=== PATIENT | female | born 2000 | race Two or more races ===

== ENCOUNTER 2024-05-03 21:34 | Observation (INO) | payer MEDICAID, SELFPAY ==
[2024-05-03 21:35] VITALS: BMI 19.2
[2024-05-03 22:03] VITALS: BP 103/86; PULSE 71; RESP 16; TEMP 36.9; O2SAT 99
--- NOTE | 2024-05-03 22:26 | XR_ITS ---
Examination: Three-way abdomen series including AP chest Technique: AP supine chest AP upright AP supine abdomen 3 views Exam date and time: May 03, 2024 11:53 PM Indications: Abdominal pain and bloating 3 days Findings: Normal heart size No pneumonia or pulmonary edema Very large amounts of stool in the rectum and rectosigmoid Moderate colonic ileus Prominent lumbar levoscoliosis Impression: Massive amounts of stool in the rectosigmoid and rectum
--- NOTE | 2024-05-03 22:27 | PD.EDRME ---
Rapid Medical Screening Exam RME Arrival date/time: 05/03/24 21:34 24-year-old nonverbal female brought in by caregiver who reports changes in baseline mental status shivering and having a fever since this morning Chief Complaint: Fever Time Seen by Provider: 05/03/24 22:20 Vital signs: Vital Signs Temperature 98.5 F 05/03/24 22:03 Pulse Rate 71 05/03/24 22:03 Respiratory Rate 16 05/03/24 22:03 Blood Pressure 103/86 H 05/03/24 22:03 Pulse Oximetry (%) 99 05/03/24 22:03 Oxygen Delivery Method Room Air 05/03/24 22:03
[2024-05-03 22:51] LABS: Basophils # (Auto) 0.1 Thou/mm3 (0.0-0.2); Basophils % (Auto) 1 % (0-2.5); Eosinophils % (Auto) 0 % (0-10); Hematocrit 40.9 % (36.0-46.0); Hemoglobin 13.9 g/dL (12.0-16.0); Immature Granulocytes % (Auto) 0 % (0-0); Immature Granulocytes Auto 0.01 Thou/mm3 (0.00-0.00); Lymphocytes # (Auto) 2.4 Thou/mm3 (1.0-4.8); Lymphocytes % (Auto) 36 % (10-50); Mean Corpuscular Hemoglobin 31.3 pg (25.0-35.0); Mean Corpuscular Volume 92 fL (80-100); Monocytes # (Auto) 0.5 Thou/mm3 (0.0-0.8); Monocytes % (Auto) 7 % (0-12); Neutrophils # (Auto) 3.8 Thou/mm3 (1.8-7.7); Neutrophils % (Auto) 56 % (37-80); Nucleated Red Blood Cell % 0 /100 WBC (0); Platelet Count 198 Thou/mm3 (140-440); RDW Standard Deviation 43.2 fL (36.4-46.3); Red Blood Count 4.44 Miln/mm3 (4.00-5.20); White Blood Count 6.8 Thou/mm3 (3.6-11.0)
[2024-05-03 23:14] LABS: Alanine Aminotransferase 13 U/L (10-49); Albumin, Serum 4.7 gm/dL (3.5-5.0); Albumin/Globulin Ratio 1.6 (1.2-2.2); Alkaline Phosphatase 74 U/L (46-116); Anion Gap 8 (7-16); Aspartate Amino Transferase 26 U/L (0-34); BUN/Creatinine Ratio 30 Ratio (12-20); Bilirubin,Total 0.5 mg/dL (0.3-1.2); Blood Urea Nitrogen 18 mg/dL (9-23); Calcium 10.1 mg/dL (8.3-10.6); Calcium (Corrected) 10.1 mg/dL (8.5-10.1); Carbon Dioxide 23.7 mMol/L (20.0-31.0); Chloride 105 mMol/L (98-107); Creatinine (Component) 0.6 mg/dL (0.6-1.3); Estimated Creatinine Clearance 106.8 mL/min (>60); Globulin 2.9 gm/dL (2.3-3.5); Glucose 86 mg/dL (74-106); Osmolality,Calculated 274 (275-295); Potassium 4.2 mMol/L (3.4-5.1); Sodium 137 mMol/L (136-145); Total Protein 7.6 gm/dL (5.7-8.2); eGFR > 60 See Note
[2024-05-03 23:15] LABS: HCG,Qualitative Serum Negative
[2024-05-03 23:16] LABS: Strep A Rapid Negative (Negative)
[2024-05-04] VITALS (7 sets, daily range): BP systolic 114–140; BP diastolic 65–82; PULSE 60–99; RESP 16–18; TEMP 36.1–36.9; O2SAT 95–100; BMI 16.8
[2024-05-04 02:28] LABS: Collection Type, Urine Catheter
[2024-05-04 02:35] LABS: Bacteria,Urine Rare; Bilirubin,Urine Negative (Negative); Blood,Urine 2+ (Negative); Clarity,Urine Turbid (Clear/Hazy); Color,Urine Yellow (Lt Yel-Yel); Culture Indicated,Urine Contaminated; Glucose, Urine Negative (Negative); Ketones,Urine 2+ (Negative); Leukocyte Esterase,Urine Positive (Negative); Nitrite,Urine Negative (Negative); Protein,Urine 1+ (Neg - Trace); RBC,Urine 10 /hpf (0-3); Squamous Epithelial Cell,Urine 23 /hpf (0-5); WBC,Urine 18 /hpf (0-5)
[2024-05-04] MEDS: SODIUM CHLORIDE 0.9% 1000 ML 1,000 ML 999 ML IV (02:57)
--- NOTE | 2024-05-04 03:06 | EDNOTE_ITS ---
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 There are no further specifics. Complete HPI/ROS is unobtainable secondary to patient's condition. Related Data Home Medications ?Medication ?Instructions ?Recorded ?Confirmed benztropine 2 mg tablet 2 mg PO HS 11/26/22 11/26/22 divalproex 125 mg capsule,delayed 375 mg PO BID 11/26/22 11/26/22 release sprinkle docusate sodium 250 mg capsule 250 mg PO DAILY PRN Constipation 11/26/22 11/26/22 polyethylene glycol 3350 17 17 g PO DAILY 11/26/22 11/26/22 gram/dose oral powder (Miralax) quetiapine 400 mg tablet 400 mg PO BID 11/26/22 11/26/22 Previous Rx's ?Medication ?Instructions ?Recorded lactulose 20 gram/30 mL oral 20 g (30 mL) PO TID PRN 11/27/22 solution constipation #1,200 mL Allergies Allergy/AdvReac Type Severity Reaction Status Date / Time No Known Allergies Allergy Verified 05/03/24 21:39 Review of Systems Review of Systems ROS Unobtainable: unobtainable due to mental status and unobtainable due to medical condition Past Medical History Past Medical History NEUROLOGIC: Positive Seizures CARDIAC: Negative Cardiac Disorders or Congestive Heart Failure RESPIRATORY: Negative Chronic Obstructive Pulmonary Disease (COPD) or Asthma GENITOURINARY: Negative Renal Disease ENDOCRINE: Negative Diabetes Mellitus Type 1 or Diabetes Mellitus Type 2 HEMATOLOGIC: Negative Sickle Cell Disease PSYCHO/SOCIAL: Positive Psychiatric Problems OTHER HISTORY: Positive Hospitalization and Autism; Negative Organ Transplant, MRSA, VRSA or Vancomycin-Resistant Enterococci Surgical History SURGICAL: Negative Neurologic Surgery, Brain Shunt, Vasectomy or Organ Tr ansplant Social History SMOKING STATUS: Former smoker SUBSTANCE USE: does not use Physical Exam Narrative Physical exam: GENERAL APPEARANCE: Patient is awake, she acknowledges that I?m there but she is nonverbal. She?s non toxic appearing. She wears a diaper. HEENT: NC, AT. MMM. EOMI, clear conjunctiva, oropharynx clear. NECK: Supple without lymphadenopathy. No stiffness or restricted ROM. HEART: Normal rate and regular rhythm, normal S1/S1, no m/r/g LUNGS: CTAB, moving air well. No crackles or wheezes are heard. ABDOMEN: Distended, firm, tender, nondistended with good bowel sounds heard. BACK: No midline C/T/L spine pain or deformity, No CVAT, no obvious deformity. EXTREMITIES: Without cyanosis, clubbing or edema. MUSCULOSKELETAL: FROM of all major joints, no chest tenderness NEUROLOGICAL: Grossly nonfocal. Alert and awake, moving all 4 extremities. CN not formally tested but appear grossly intact. Observed to ambulate with normal gait. Skin: Warm and dry without any rash. No skin lesions. General Limitations: other (developmentally delayed, autistisc, nonverbal at baseline) ED Exam General Limitations: Present other (developmentally delayed, autistisc, nonverbal at baseline) Course Quality Measures none Orders Category Date Time Status Patient Condition Routine Admission 05/04/24 05:[address] in Observation Status Routine Admission 05/04/24 05:21 Active Activity as Tolerated Routine Care 05/04/24 05:21 Ordered Bedside COVID-19 Antigen Test NOW Care 05/03/24 22:26 Completed Bedside Influenza A&B Antigen Test NOW Care 05/03/24 22:[address] Screening NOW Care 05/04/24 04:02 Active In and Out Catheter X1 Care 05/03/24 22:26 Completed Insert IV NOW Care 05/04/24 02:53 Active Notify provider NEEDED Care 05/04/24 05:21 Active Diet Dysphagia 1- Pureed Diet 05/04/[address] abdomen pelvis w con Stat Exams 05/04/24 04:02 Taken XR abdomen series w chest 1V Stat Exams 05/03/24 22:26 Completed Basic Metabolic Panel AM DRAW Lab 05/05/24 05:00 Ordered Basic Metabolic Panel AM DRAW Lab 05/06/24 05:00 Ordered Basic Metabolic Panel AM DRAW Lab 05/07/24 05:00 Ordered CBC AM DRAW Lab 05/05/24 05:00 Ordered CBC AM DRAW Lab 05/06/24 05:00 Ordered CBC AM DRAW Lab 05/07/24 05:00 Ordered CBC Stat Lab 05/03/24 22:41 Completed CMP [Comprehensive Metabolic Panel] Stat Lab 05/03/24 22:41 Completed HCG,Qualitative Serum Stat Lab 05/03/24 22:41 Completed Strep A Rapid Stat Lab 05/03/24 22:29 Completed UA [Urinalysis] Stat Lab 05/04/24 05:30 Received UA, C/S IF [Urinalysis, C/S if Indicated] Stat Lab 05/04/24 01:15 Completed Divalproex Sod [Depakote Sprinkle] Med 05/04/24 09:00 Ordered 375 mg PO BID Enoxaparin [Lovenox] Med 05/04/24 09:00 Ordered 40 mg SC QDAY Lactulose Syrup [Enulose Syrup] Med 05/04/24 06:00 Ordered 10 gm PO TID Magnesium Citrate Liqd [Citrate of Magnesia Liqd] Med 05/04/24 05:02 Discontinued 300 ml PO X1 ONE Polyeth Glycol/Propylene Glyco [Miralax Pkt] Med 05/04/24 09:00 Ordered 17 gm PO QDAY QUEtiapine FUMARATE [SEROquel] Med 05/04/24 09:00 Ordered 100 mg PO BID Senna [Senokot] Med 05/04/24 05:22 Ordered 1 tab PO BID PRN Sodium Chloride 0.9% 1000 ml [Ns] 1,000 ml Med 05/04/24 05:30 Ordered IV 75 mls/hr Sodium Chloride 0.9% 1000 ml [Ns] 1,000 ml Med 05/04/24 02:53 Discontinued IV 999 mls/hr cefTRIAXone/D5w 1gm IV premix [Rocephin/D5w 1gm IV Med 05/04/24 05:24 Ordered premix] 50 ml IV QDAY Code Status Routine Oth 05/04/24 05:21 Ordered Vital Signs Vital signs: Vital Signs Temperature 98.5 F 05/03/24 22:03 Pulse Rate 71 05/03/24 22:03 Respiratory Rate 16 05/03/24 22:03 Blood Pressure 103/86 H 05/03/24 22:03 Pulse Oximetry (%) 99 05/03/24 22:03 Oxygen Delivery Method Room Air 05/03/24 22:03 Fever MDM Narrative MDM Narrative:: 0523: Completed a fecal disimpaction of approximately 10 handfuls of very firm stool. Patient appears to be much more comfortable, actually bearing down and able to pass stool herself and actually urinate now. Cases discussed with Dr. Iniguez due to the significant fecal loading and burning, he will admit for obs ervation for further bowel cleansing. Scribe Attestation: I, Lance Gonzalez, am scribing for and in the presence of Dr. Fermin. Provider Notation: Although this document has been carefully reviewed, there may still be some phonetic and other typographical errors. These errors are purely grammatical due to imperfections in the software program and should not be construed in any way to compromise the substance of the patient's medical care during this visit. 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 Examination: Three-way abdomen series including AP chest Technique: AP supine chest AP upright AP supine abdomen 3 views Exam date and time: May 03, 2024 11:53 PM Indications: Abdominal pain and bloating 3 days Findings: Normal heart size No pneumonia or pulmonary edema Very large amounts of stool in the rectum and rectosigmoid Moderate colonic ileus Prominent lumbar levoscoliosis Impression: Massive amounts of stool in the rectosigmoid and rectum Dictated By: Tony Lou MD Medications / Prescriptions Medications or Prescriptions considered but not ordered:: None Medication administrations:: Medication Administration History Divalproex Sodium (Divalproex Sod 125 Mg Sprinkle) 375 mg PO BID [facility] Stop: 06/03/24 08:59 Enoxaparin Sodium (Enoxaparin Sod Inj 40 Mg/0.4 Ml Syringe) 40 mg SC QDAY [facility] Stop: 05/18/24 08:59 Sodium Chloride (Ns) 1,000 mls @ 75 mls/hr IV .[id number] [facility] Stop: 06/03/24 05:29 Ceftriaxone Sodium/Dextrose (Rocephin/D5w 1gm Iv Premix) 50 mls @ 100 mls/hr IV QDAY [facility] Stop: 05/11/24 05:23 Lactulose (Lactulose Syrup 20 Gm/30 Ml Udc) 10 gm PO TID SAMMY; Protocol Stop: 06/03/24 05:59 Polyethylene Glycol (Polyethylene Glycol 17 Gm Packet) 17 gm PO QDAY [facility] Stop: 06/03/24 08:59 Quetiapine Fumarate (Quetiapine Fumarate 100 Mg Tablet) 100 mg PO BID [facility] Stop: 06/03/24 08:59 Sennosides (Senna Tablet) 1 tab PO BID PRN; Protocol PRN Reason: CONSTIPATION Stop: 06/03/24 05:21 Discontinued Medications Sodium Chloride (Ns) 1,000 mls @ 999 mls/hr IV .Q1H1M ONE Stop: 05/04/24 03:53 Last Admin: 05/04/24 02:57 Dose: 999 mls/hr Documented By: MARICRUZ Magnesium Citrate (Magnesium Citrate 300 Ml Btl) 300 ml PO X1 ONE Stop: 05/04/24 05:03 As above Consultations Consultation(s) initiated? (list below): Yes Consultation #1 (Physician, Specialty, Details): See narrative Diagnosis Fever Differential Diagnosis: fever of unknown origin, pyelonephritis, viral infection and sepsis Most likely diagnosis given after review of the tests above:: See clinical impression below Admission Indicated Admission indicated?: indicated Admission Request Was there a request for admission?: Yes Admission Attestation Admission request attestation: Discussed case with [] from Hospitalist service regarding admission. Discussed patients ED course, exam findings, labs, and radiology results. The Hospitalist [agrees,declines] to accept the patient for admission. Disposition Plan Disposition Plan: Admit Discharge Plan Plan Patient Disposition: Admit Acute Care w/in Hospital Prescriptions/Referrals Prescriptions/Med Rec: No Action benztropine 2 mg Tablet 2 mg PO HS divalproex 125 mg Capsule, Delayed Rel Sprinkle 375 mg PO BID quetiapine 400 mg Tablet 400 mg PO BID polyethylene glycol 3350 [Miralax] 17 gram/dose Powder 17 g PO DAILY docusate sodium 250 mg capsule 250 mg PO DAILY PRN (Reason: Constipation) lactulose 20 gram/30 mL solution 20 g PO TID PRN (Reason: constipation) Qty: 1200 0RF Referrals: No Primary/Family,Physician [Primary Care Provider] - In 1 week Problem List Clinical Impression: Fecal impaction, Constipation, Acute proctitis, Acute urinary retention Patient/Caregiver Discharge Instructions Print Language: Somali Stand Alone Forms: [facility] Award Info., Patient Portal Info Letter
--- NOTE | 2024-05-04 04:02 | XR_ITS ---
Examination: CT abdomen with intravenous contrast CT pelvis with intravenous contrast 2-D coronal reconstructions 2-D sagittal reconstructions Date and time of exam:May 04, 2024 0428 hrs. Indications: Distended abdomen fever beginning today. CTDI: vol (mGy) 5.66 DLP: (mGycm) 339 Technique: Multiple axial sections of the abdomen and pelvis have been obtained. 64 slice high-resolution scanner used. 3 mm axial sections have been obtained, post intravenous injection 60 cc [id number] 2-D sagittal, coronal reconstructions obtained. Low dose protocols were performed. One or more of the following dose reduction techniques were used; automated exposure control, adjustment of the mA and/or KV according to patient size, use of iterative reconstruction technique. Findings: Mild opacity left base No focal liver or splenic lesion No gallstones There may be minimal thickening of the cystic duct No common bile duct stones noted No pancreatic mass Prominent lumbar levoscoliosis Large amounts of stool in the colon especially rectosigmoid, thickening of the rectal wall The appendix is partially visualized and does not appear inflamed Contracted urinary bladder Impression: Suspicious for mild pneumonia left base Recommend hepatobiliary sonography follow-up to assess the gallbladder and cystic duct wall Large amounts of stool in the colon especially rectosigmoid, proctitis pattern
--- NOTE | 2024-05-04 05:15 | PC.NURSE ---
ASSESSED DR MULLINS WITH, FECAL DECOMPACTION. PT TOLERATED WELL.
[2024-05-04 05:43] LABS: Collection Type, Urine Catheter
[2024-05-04] MEDS: MAGNESIUM CITRATE 300 ML BTL PO (05:48)
--- NOTE | 2024-05-04 05:49 | ESHP_ITS ---
Documentation for date of: 05/04/24 HPI History of Present Illness History of present illness: CC: Constipation based on change in patient behavior per caregiver Patient is a 25 year-old female with a past medical history of developmental delay, autism, nonverbal, history of chronic constipation, history of ARPIT, history of urinary retention who presented to the emergency room with a chief complaint of constipation and abdominal pain. Caregiver at bedside stated patient still had been bowel stools but have become irregular and less often. Last bowel movement one 1 day ago. Caregiver denied any melena, hematochezia or change in consistency. Denied pyrexia or chills. No nausea or vomiting. Caregiver stated patient is normally active but recently has been getting up less which usually indicates constipation for patient. Admitted on 05/04/2024 for constipation s/p fecal disimpaction (in ER) and likely UTI. ER Course: BP: 103/86, HR 71, RR 16, SpO2 99% RA CBC (05/03/2024): WBC 6.8, Hgb 13.9, Hct 40.9, MCV 92 CMP (05/03/2024): Na 137, K 4.2, GFR >60, BUN 18, Cr 0.6 HCG: Negative UA (05/04/2024): Turbid, Ketons 2+, Blood 2+, esterase +, WBC 18, Contaminated UA REPEAT (05/04/2024): Pending Chest/Abdomen (05/03/2024): Massive Amount of stool in the rectosigmoid and rectum Abdomen/Pelvis CT (05/04/2024): Pending Meds given: Magnesium citrate and NS 1 L X 1 Post Fecal dismpaction in ER PMH: -developmental delays -autism -chronic constipation -hx of ARPIT -hx of urinary retention Home Medication: -ziprasidone 40 mg BID with food -Clonidine once per day (please confirm dosage) -Divalproex 3 capsules orally in the morning and at bedtime -Linzess 1 capsule orally every morning, 30 minutes before meal -Oxybutynin 5 mg once daily -Quetiapine (D/C per print out) -Hydroxyzine 10 mg once daily PRN - Allergies: None Code Status: Full Code Review of Systems Review of Systems Narrative Review of Systems: General appearance: NO weight change, NO fatigue, NO weakness, NO fever, NO chills, NO night sweats, No cough Skin: NO rash, NO itching, NO sores, NO moles HEENT: NO Trauma, NO nausea, NO vomiting, NO visual changes, NO blurry vision, NO double vision, NO tinnitus, NO vertigo, NO ear discharge, NO rhinorrhea, NO stuffiness, NO sneezing, NO allergy, NO epistaxis. NO Hoarseness, NO sore throat, NO swollen neck. Cardiac: NO Palpitations, NO dyspnea on exertion, NO orthopnea, NO paroxysmal nocturnal dyspnea, NO edema Respiratory: NO Shortness of Breath, NO Wheezing, NO Cough, NO Sputum, NO hemoptysis GI:NO appetite, NO nausea, NO vomiting, NO dysphagia, NO changes in bowel frequency, NO stool color, NO diarrhea, NO constipation, NO hemetemesis, NO hemorrhoids, NO melena, NO hematechezia, NO abdominal pain (no grimacing by patient), NO jaundice Renal: NO frequency, NO hesitancy, NO urgency, NO hematuria, NO nocturia, NO incontinence MSK: NO muscle weakness, NO gout, NO arthritis, NO muscle stiffness Neuro: NO headaches, NO tremors, NO weakness, NO paralysis, NO seizures, NO loss of consciousness, NO numbness. Hem: NO anemia, NO easy bruising/bleeding, NO petechiae, NO purpura Endo: NO heat/cold intolerance, NO excessive sweating, NO polyuria, NO polydipsia, NO polyphagia, NO thyroid problems, NO diabetes Pysch: NO mood, NO anxiety, NO depression Exam Vital Signs Temp Pulse Resp BP Pulse Ox O2 Del Method 98.3 F 74 18 124/79 97 Room Air 05/04/24 05:37 05/04/24 05:37 05/04/24 05:37 05/04/24 05:37 05/04/24 05:37 05/04/24 05:37 Narrative Exam General Appearance: Thin female who is lying in bed in no acute distress. HEENT: Skull symmetrical and atraumatic. Conjunctivae pin and moist. Pupils equal, round, reactive to light and accommodation (PERRL). External ear without lesion or discharge. Straight, nares patient, mucosa pink, no discharge. No thyroid nodule appreciated. No cervical lymphadenopathy. Cardio: Normal Rate and Rhythm with S1 and S2 heart sounds. No murmurs or extra heart sounds auscultated. No bruits on carotid auscultation. No peripheral edema or cyanosis. Lungs: Symmetric with good expansion. Chest and back non-tender. Breath sounds vesicular without crackles, wheezing or rhonchi. Abdomen: Mild-tender (patient removes providers hands), Non-distended, hypo- reactive bowel sounds. Neuro: Yes Alert, NO cooperative, NO oriented to person, place, and time (non- verbal). Results: Labs 05/03/24 22:41 05/03/24 22:41 Labs: Short CBC 05/03/24 Range/Units 22:41 WBC 6.8 (3.6-11.0) Thou/mm3 Hgb 13.9 (12.0-16.0) g/dL Hct 40.9 (36.0-46.0) % Plt Count 198 (140-440) Thou/mm3 BMP 05/03/24 22:41 Sodium 137 Potassium 4.2 Chloride 105 Carbon Dioxide 23.7 BUN 18 Creatinine 0.6 Glucose 86 Calcium 10.1 Liver Function 05/03/24 Range/Units 22:41 Total Bilirubin 0.5 (0.3-1.2) mg/dL AST 26 (0-34) U/L ALT 13 (10-49) U/L Alkaline Phosphatase 74 (46-116) U/L Albumin 4.7 (3.5-5.0) gm/dL Urine 05/04/24 Range/Units 01:15 Urine Color Yellow (Lt Yel-Yel) Urine Clarity Turbid A (Clear/Hazy) Urine pH 6.0 (5.0-7.0) Ur Specific [place] 1.040 H (1.001-1.035) Urine Protein 1+ A (Neg - Trace) Urine Glucose (UA) Negative (Negative) Quality Measures Quality Measures none Medications Home Medications and Allergies Home Medications ?Medication ?Instructions ?Recorded ?Confirmed ?Type divalproex 125 mg capsule,delayed 375 mg PO BID 11/26/22 05/04/24 History release sprinkle docusate sodium 250 mg capsule 250 mg PO DAILY PRN Constipation 11/26/22 05/04/24 History clonidine HCl 0.1 mg tablet 0.1 mg PO 1XD 05/04/24 05/04/24 History linaclotide 145 mcg capsule 145 mcg PO BID 05/04/24 05/04/24 History (Linzess) oxybutynin chloride 5 mg tablet 5 mg PO 1XD 05/04/24 05/04/24 History ziprasidone HCl 40 mg capsule 40 mg PO 2XD 05/04/24 05/04/24 History Allergies Allergy/AdvReac Type Severity Reaction Status Date / Time No Known Allergies Allergy Verified 05/03/24 21:39 Visit Medications Divalproex Sodium (Divalproex Sod 125 Mg Sprinkle) 375 mg PO BID [facility] Stop: 06/03/24 08:59 Enoxaparin Sodium (Enoxaparin Sod Inj 40 Mg/0.4 Ml Syringe) 40 mg SC QDAY [facility] Stop: 05/18/24 08:59 Sodium Chloride (Ns) 1,000 mls @ 75 mls/hr IV .[id number] [facility] Stop: 06/03/24 05:29 Ceftriaxone Sodium/Dextrose (Rocephin/D5w 1gm Iv Premix) 50 mls @ 100 mls/hr IV QDAY@0600 [facility] Stop: 05/11/24 05:59 Ceftriaxone Sodium/Dextrose (Rocephin/D5w 1gm Iv Premix) 50 mls @ 100 mls/hr IV X1 ONE Stop: 05/04/24 06:29 Lactulose (Lactulose Syrup 20 Gm/30 Ml Udc) 10 gm PO TID SAMMY; Protocol Stop: 06/03/24 05:59 Polyethylene Glycol (Polyethylene Glycol 17 Gm Packet) 17 gm PO QDAY [facility] Stop: 06/03/24 08:59 Quetiapine Fumarate (Quetiapine Fumarate 100 Mg Tablet) 100 mg PO BID [facility] Stop: 06/03/24 08:59 Sennosides (Senna Tablet) 1 tab PO BID PRN; Protocol PRN Reason: CONSTIPATION Stop: 06/03/24 05:21 Discontinued Medications Sodium Chloride (Ns) 1,000 mls @ 999 mls/hr IV .Q1H1M ONE Stop: 05/04/24 03:53 Last Admin: 05/04/24 02:57 Dose: 999 mls/hr Magnesium Citrate (Magnesium Citrate 300 Ml Btl) 300 ml PO X1 ONE Stop: 05/04/24 05:03 Last Admin: 05/04/24 05:48 Dose: 300 ml Assessment & Plan Plan Patient is a 25 year-old female with a past medical history of developmental delay, autism, nonverbal, history of chronic constipation, history of ARPIT, history of urinary retention who was admitted on 05/04/2024 for constipation s/p fecal disimpaction (in ER) and likely UTI. #Chronic Constipation Medication (Seroquel D/C recently, PCP trying to see if improve constipation) vs decrease fiber intake vs psychological withhold bowel movement Plan: BNP CBC NS 1000 ml @ 75 mls/hr Lactulose 10 gm PO TId Polyeth Glycol #UTI Likely secondary to constipation. Diagnostics: WBC 6.8 UA (05/04/2024): Turbid, Ketons 2+, Urine Blood 2, Esterase Positive, WBC 18, Squamous 23 Plan: UA 1st: WBC Plan: Repeat UA Cetfriaxone 1 gm #Autism, Development Delays Restart Home Medication Plan: Senna PRN Ziprasidone 40 mg PO BID Divalproex 375 mg PO BID Health Maintenance: Disp: Pt is currently admitted to floors for further management of constipation, awaiting improved symptoms FEN: Diet Dysphagia 1 DVT: Enoxaparin Code: Full code - The patient's plan was discussed with attending Dr Acevedo and senior residents Dr Pizano and Dr Wyatt, Stephanie Chapa MD PGY1 Internal Medicine Attending Provider Attestation/Addendum Pt was evaluated and plan formulated together with the housestaff team. I have reviewed the residents note above and agree with most of its content. Please refer to the residents note for additional details.
--- NOTE | 2024-05-04 05:49 | PRELIM_ITS ---
CT scan of the abdomen and pelvis with intravenous contrast (axial sections with sagittal and coronal reformats): May 04, 2024 at 0429 hoursClinical History: Distended abdomen.Compared with the prio r study dated November 25, 2022.Findings: There is mild peribronchial thickening. Subpleural ground-glass o pacities are seen in left lower lobe. Bibasilar dependent atelectasis is present. There is possible m ild wall enhancement of the cystic duct (coronal image 81/131). The common bile duct is prominent and measures 8 mm. No evidence of intraductal calculus. The liver, pancreas, spleen, adrenals and kidney s appear unremarkable. There is no renal/ureteric calculus or hydronephrosis.No evidence of bowel obs truction. The appendix is within normal limits. There is rectosigmoid fecal impaction with interval w orsening since the prior study. Also seen is mild wall thickening of the rectum with perirectal fat s tranding.The urinary bladder is incompletely distended at the time of the examination and appears mil dly thick walled. There is no free fluid, free air or abscess. The abdominal aorta and its branches a ppear unremarkable.There is levoscoliosis of the thoracolumbar spine. Deformity of head of right femu r is noted. Impression:1. Rectosigmoid fecal impaction with interval worsening since the prior study with stercoral proctitis. Recommend clinical correlation.2. Subpleural ground-glass opacities in the left lower lobe, concerning for infectious etiology. Recommend clinical correlation and follow up to resolution. 3. Other findings as described above. Report Electronically Signed By: Piedad Haq 024 5:48:18 AM [EST]
[2024-05-04] MEDS: cefTRIAXone/D5w 1gm IV premix 50 ML IV (05:50)
[2024-05-04] MEDS: SODIUM CHLORIDE 0.9% 1000 ML 1,000 ML 75 ML IV (05:50)
[2024-05-04 05:57] LABS: Bilirubin,Urine Negative (Negative); Blood,Urine 1+ (Negative); Clarity,Urine Clear (Clear/Hazy); Color,Urine Lt-Yellow (Lt Yel-Yel); Glucose, Urine Negative (Negative); Ketones,Urine 1+ (Negative); Leukocyte Esterase,Urine Negative (Negative); Nitrite,Urine Negative (Negative); Protein,Urine Negative (Neg - Trace); RBC,Urine 3 /hpf (0-3); Squamous Epithelial Cell,Urine < 1 /hpf (0-5); Urobilinogen,Urine Negative mg/dL (0.0-1.0); WBC,Urine 2 /hpf (0-5)
[2024-05-04 06:01] LABS: Specific Gravity,Urine 1.005 (1.001-1.035)
[2024-05-04] MEDS: LACTULOSE SYRUP 20 GM/30 ML UDC 10 GM PO ×3 (06:29→21:18)
--- NOTE | 2024-05-04 08:40 | PC.NURSE ---
Pharmacy called for ordered medications. Pharm to bring meds.
[2024-05-04] MEDS: DIVALPROEX SOD 125 MG SPRINKLE 375 MG PO ×2 (10:00→21:18)
[2024-05-04] MEDS: POLYETHYLENE GLYCOL 17 GM PACKET PO (10:00)
[2024-05-04] MEDS: ENOXAPARIN SOD INJ 40 MG/0.4 ML SYRINGE SC (10:00)
[2024-05-04] MEDS: ZIPRASIDONE 20 MG CAPSULE 40 MG PO ×2 (10:00→21:18)
--- NOTE | 2024-05-04 10:41 | PC.SS ---
Patient Erika Terrazas is a 24 Year old female. SS contacted patients Guard of [employer]ic[employer], Letty Dawkins to conduct initial assessment and discuss discharge planning. Letty confirmed demographic information. Patient resides at [facility]. Patient does not utilize any source of DME to assist with ambulation Patient does not require use of home oxygen. Patient does require assistance completing ADL's. Patient?s medical surrogate decision maker is [facility]. intellectual property managerFabi: [phone]. Patient's PCP is Juanito Calabrese. Patient will be going back to facility, Letty will provide transportation on behalf of the patient. No further intervention required at this time, social sciences professor will be available to address any further concerns. Discharge plan: Back to [facility] Decision maker: [facility]: Biodiesel Processing TechnicianFabi Rico [phone] PCP: Juanito Calabrese
--- NOTE | 2024-05-04 11:07 | ESPR_ITS ---
<Statement entered by James Kong MD - 05/04/24 18:13> Patient still not having regular BM's. will schedule senna and do a water enema. Case discussed with medicine team. James oKng MD PGY3. Documentation for date of: 05/04/24 Subjective Subjective Interval history: Patient seen at bedside, patient is nonverbal, lying comfortably in bed, patient had fecal disimpaction done in the ED. Patient is started on bowel regimen will continue to monitor for further bowel movements. Exam Vital Signs Temp Pulse Resp BP Pulse Ox O2 Del Method 98.5 F 73 18 118/82 100 Room Air 05/04/24 10:05/04/24 10:00 05/04/24 10:05/04/24 10:05/04/24 10:05/04/24 10:00 Narrative Exam General Appearance: thin female who is lying in bed in no acute distress HEENT: Skull symmetrical and atraumatic. Conjunctivae pin and moist. Pupils equal, round, reactive to light and accommodation (PERRL). External ear without lesion or discharge. Straight, nares patient, mucosa pink, no discharge. No thyroid nodule appreciated. No cervical lymphadenopathy. Cardio: Normal Rate and Rhythm with S1 and S2 heart sounds. No murmurs or extra heart sounds auscultated. No bruits on carotid auscultation. No peripheral edema or cyanosis. Lungs: Symmetric with good expansion. Chest and back non-tender. Breath sounds vesicular without crackles, wheezing or rhonchi Abdomen: Mild-tender (patient removes providers hands), Non-distended, hypo- reactive bowel sounds Neuro: Yes Alert, NO cooperative, NO oriented to person, place, and time (non- verbal). Unable to assess due to patient condition. Objective Labs 05/03/24 22:41 05/03/24 22:41 Labs: Laboratory Results - last 24 hr 05/03/24 05/03/24 05/04/24 22:29 22:41 01:15 WBC 6.8 RBC 4.44 Hgb 13.9 Hct 40.9 MCV 92 MCH 31.3 MCHC 34.0 RDW Std Deviation 43.2 Plt Count 198 Neut % (Auto) 56 Lymph % (Auto) 36 [place] % (Auto) 7 Eos % (Auto) 0 Baso % (Auto) 1 Neut # (Auto) 3.8 Lymph # (Auto) 2.4 [place] # (Auto) 0.5 Eos # (Auto) 0.0 Baso # (Auto) 0.1 Immature Gran # (Auto) 0.01 H Absolute Nucleated RBC 0.00 Immature Gran % 0 Nucleated RBC % 0 Sodium 137 Potassium 4.2 Chloride 105 Carbon Dioxide 23.7 Anion Gap 8 BUN 18 Creatinine 0.6 Estim Creat Clear Calc 106.8 eGFR > 60 BUN/Creatinine Ratio 30 H Glucose 86 Calculated Osmolality 274 L Calcium 10.1 Corrected Calcium 10.1 Total Bilirubin 0.5 AST 26 ALT 13 Alkaline Phosphatase 74 Total Protein 7.6 Albumin 4.7 Globulin 2.9 Albumin/Globulin Ratio 1.6 HCG, Qual Negative Ur Collection Type Catheter Urine Color Yellow Urine Clarity Turbid A Urine pH 6.0 Ur Specific [place] 1.040 H Urine Protein 1+ A Urine Glucose (UA) Negative Urine Ketones 2+ A Urine Blood 2+ A Urine Nitrite Negative Urine Bilirubin Negative Urine Urobilinogen (Auto) 3.0 Ur Leukocyte Esterase Positive Urine RBC 10 H Urine WBC 18 H Ur Squamous Epith Cells 23 H Urine Bacteria Rare Ur Culture Indicated? Contaminated Group A Strep Rapid Negative 05/04/24 05:30 WBC RBC Hgb Hct MCV MCH MCHC RDW Std Deviation Plt Count Neut % (Auto) Lymph % (Auto) [place] % (Auto) Eos % (Auto) Baso % (Auto) Neut # (Auto) Lymph # (Auto) [place] # (Auto) Eos # (Auto) Baso # (Auto) Immature Gran # (Auto) Absolute Nucleated RBC Immature Gran % Nucleated RBC % Sodium Potassium Chloride Carbon Dioxide Anion Gap BUN Creatinine Estim Creat Clear Calc eGFR BUN/Creatinine Ratio Glucose Calculated Osmolality Calcium Corrected Calcium Total Bilirubin AST ALT Alkaline Phosphatase Total Protein Albumin Globulin Albumin/Globulin Ratio HCG, Qual Ur Collection Type Catheter Urine Color Lt-Yellow Urine Clarity Clear Urine pH 6.0 Ur Specific [place] 1.005 Urine Protein Negative Urine Glucose (UA) Negative Urine Ketones 1+ A Urine Blood 1+ A Urine Nitrite Negative Urine Bilirubin Negative Urine Urobilinogen (Auto) Negative Ur Leukocyte Esterase Negative Urine RBC 3 Urine WBC 2 Ur Squamous Epith Cells < 1 Urine Bacteria None Ur Culture Indicated? Group A Strep Rapid Quality Measures Quality Measures none Assessment & Plan Assessment Current Active Medications: Generic Name Dose Route Start Last Admin Trade Name Freq PRN Reason Stop Dose Admin Divalproex Sodium 375 mg 05/04/24 09:00 05/04/24 10:00 Divalproex Sod 125 Mg Sprinkle PO 06/03/24 08:59 375 mg BID SAMMY Administration Enoxaparin Sodium 40 mg 05/04/24 09:00 05/04/24 10:00 Enoxaparin Sod Inj 40 Mg/0.4 Ml Syringe SC 05/18/24 08:59 40 mg QDAY SAMMY Administration Sodium Chloride 1,000 mls @ 75 mls/hr 05/04/24 05:30 05/04/24 05:50 Ns IV 06/03/24 05:29 75 mls/hr .[id number] SAMMY Administration Ceftriaxone Sodium/Dextrose 50 mls @ 100 mls/hr 05/05/24 06:00 Rocephin/D5w 1gm Iv Premix IV 05/12/24 05:59 QDAY@0600 SAMMY Lactulose 10 gm 05/04/24 06:00 05/04/24 06:29 Lactulose Syrup 20 Gm/30 Ml Udc PO 06/03/24 05:59 10 gm TID SAMMY Administration Protocol Polyethylene Glycol 17 gm 05/04/24 09:00 05/04/24 10:00 Polyethylene Glycol 17 Gm Packet PO 06/03/24 08:59 17 gm QDAY SAMYM Administration Sennosides 1 tab 05/04/24 05:22 Senna Tablet PO 06/03/24 05:21 BID PRN CONSTIPATION Protocol Ziprasidone 40 mg 05/04/24 09:00 05/04/24 10:00 Ziprasidone 20 Mg Capsule PO 06/03/24 08:59 40 mg BID SAMMY Administration Plan Assessment and Plan: Summary: Patient is a 25 year-old female with a past medical history of developmental delay, autism, nonverbal, history of chronic constipation, history of ARPIT, history of urinary retention who was admitted on 05/04/2024 for constipation s/p fecal disimpaction (in ER) and possible UTI. #Chronic Constipation -Medication (Seroquel D/C recently, PCP trying to see if improve constipation) vs decrease fiber intake vs psychological withhold bowel movement -Patient's x-ray bowel shows copious amounts of stool in rectosigmoid. -CT-abdomen pelvis: Large amounts of stool in the colon especially rectosigmoid, proctitis pattern. Plan: -Senna p.o. twice daily -Polyethylene glycol 17 g p.o. daily -Lactulose 10 g p.o. 3 times daily -Monitor for bowel movements -Will consider enema if no bowel movement today #UTI -Possibly Likely to constipation. -WBC 6.8 UA (05/04/2024): Turbid, Ketons 2+, Urine Blood 2, Esterase Positive, WBC 18, Squamous 23 -Repeat UA negative for UTI #Autism, Development Delays -Continue ziprasidone 40 mg PO BID -Continue divalproex 375 mg PO BID Health Maintenance: Disp: Continue to monitor, consider enema if no bowel movement FEN: Diet Dysphagia 1 DVT: Enoxaparin Code: Full code Case discussed with Attending Dr. Rubin and Dr. Kong PGY3. aFrheen Loza PGY1 Attending Provider Attestation/Addendum Patient with dev delay admitted for abdominal pain secondary to severe constipation. Will repeat abdominal xray, [id number] GI or surgical eval if worsening,
--- NOTE | 2024-05-04 18:39 | XR_ITS ---
Examination: Abdomen AP single view Technique: AP portable supine abdomen, single view Exam date and time: May 04, 2024 1957 hrs. Indications: Constipation abdominal pain this week. Findings: Massive amounts of stool in the rectosigmoid Mild colonic ileus Air distended stomach Prominent lumbar levoscoliosis Impression: Massive amounts of stool in the rectosigmoid
[2024-05-04] MEDS: SENNA TABLET 1 TAB PO (21:18)
--- NOTE | 2024-05-05 03:11 | XR_ITS ---
Examination: Abdomen AP single view Technique: AP portable supine abdomen, single view Exam date and time: May 05, 2024 0609 hours INDICATIONS: Constipation months FINDINGS: Very large amounts of stool in the rectosigmoid Prominent lumbar levoscoliosis Colonic and small bowel ileus IMPRESSION: Very large amounts of stool in the rectosigmoid
[2024-05-05 04:00] VITALS: BP 101/63; PULSE 83; RESP 18; TEMP 36; O2SAT 98
[2024-05-05] MEDS: LACTULOSE SYRUP 20 GM/30 ML UDC 10 GM PO ×2 (05:12→21:11)
[2024-05-05] MEDS: cefTRIAXone/D5w 1gm IV premix 50 ML IV (05:12)
[2024-05-05 05:55] LABS: Basophils % (Auto) 1 % (0-2.5); Eosinophils # (Auto) 0.1 Thou/mm3 (0.0-0.5); Eosinophils % (Auto) 2 % (0-10); Hematocrit 42.8 % (36.0-46.0); Hemoglobin 14.3 g/dL (12.0-16.0); Immature Granulocytes % (Auto) 0 % (0-0); Immature Granulocytes Auto 0.01 Thou/mm3 (0.00-0.00); Lymphocytes # (Auto) 2.4 Thou/mm3 (1.0-4.8); Lymphocytes % (Auto) 43 % (10-50); Mean Corpuscular HGB Conc 33.4 g/dl (31.0-37.0); Mean Corpuscular Hemoglobin 31.1 pg (25.0-35.0); Mean Corpuscular Volume 93 fL (80-100); Monocytes # (Auto) 0.4 Thou/mm3 (0.0-0.8); Monocytes % (Auto) 8 % (0-12); Neutrophils # (Auto) 2.7 Thou/mm3 (1.8-7.7); Neutrophils % (Auto) 48 % (37-80); Nucleated Red Blood Cell % 0 /100 WBC (0); Platelet Count 99 Thou/mm3 (140-440); RDW Standard Deviation 43.5 fL (36.4-46.3); White Blood Count 5.6 Thou/mm3 (3.6-11.0)
[2024-05-05 06:14] LABS: Anion Gap 7 (7-16); BUN/Creatinine Ratio 14 Ratio (12-20); Blood Urea Nitrogen 7 mg/dL (9-23); Calcium 9.6 mg/dL (8.3-10.6); Carbon Dioxide 26.7 mMol/L (20.0-31.0); Chloride 106 mMol/L (98-107); Creatinine (Component) 0.5 mg/dL (0.6-1.3); Estimated Creatinine Clearance 112.3 mL/min (>60); Glucose 93 mg/dL (74-106); Osmolality,Calculated 277 (275-295); Potassium 4.3 mMol/L (3.4-5.1); Sodium 140 mMol/L (136-145); eGFR > 60 See Note
[2024-05-05 07:45] VITALS: BP 127/84; PULSE 94; RESP 16; TEMP 36.4; O2SAT 99
[2024-05-05] MEDS: SENNA TABLET 1 TAB PO ×2 (09:19→21:12)
[2024-05-05] MEDS: ZIPRASIDONE 20 MG CAPSULE 40 MG PO ×2 (09:20→21:12)
[2024-05-05] MEDS: DIVALPROEX SOD 125 MG SPRINKLE 375 MG PO ×2 (09:20→21:11)
[2024-05-05] MEDS: POLYETHYLENE GLYCOL 17 GM PACKET PO (09:20)
[2024-05-05 09:35] VITALS: BMI 16.9
[2024-05-05 11:16] LABS: Phosphorous 3.5 mg/dL (2.4-5.1)
--- NOTE | 2024-05-05 11:18 | PC.NURSE ---
bladder scanned pt ....239 ml of urine in bladder
[2024-05-05] MEDS: NA SU/NAHCO3/KC/PEG (Golytely) 4,000 ML BTL 4000 ML PO (11:41)
[2024-05-05 11:56] VITALS: BP 114/65; PULSE 91; RESP 20; TEMP 36.3; O2SAT 94
[2024-05-05 11:57] VITALS: BP 122/75; PULSE 91; RESP 17; TEMP 36.3; O2SAT 97
--- NOTE | 2024-05-05 14:53 | ESPR_ITS ---
Documentation for date of: 05/05/24 Subjective Subjective Interval history: Patient seen at bedside, patient's director of retail operations at bedside. Patient eating breakfast comfortably sitting in bed. Per nurse patient had a bowel movement yesterday with enema, no bowel movement noted since then. Will consult Dr. Dasilva, thermostat maker for further recommendations. Exam Vital Signs Temp Pulse Resp BP Pulse Ox O2 Del Method 97.4 F 91 17 122/75 97 Room Air 05/05/24 11:57 05/05/24 11:57 05/05/24 11:57 05/05/24 11:57 05/05/24 11:57 05/05/24 11:57 Narrative Exam General Appearance: thin female who is lying in bed in no acute distress HEENT: Skull symmetrical and atraumatic. Conjunctivae pin and moist. Pupils equal, round, reactive to light and accommodation (PERRL). External ear without lesion or discharge. Straight, nares patient, mucosa pink, no discharge. No thyroid nodule appreciated. No cervical lymphadenopathy. Cardio: Normal Rate and Rhythm with S1 and S2 heart sounds. No murmurs or extra heart sounds auscultated. No bruits on carotid auscultation. No peripheral edema or cyanosis. Lungs: Symmetric with good expansion. Chest and back non-tender. Breath sounds vesicular without crackles, wheezing or rhonchi Abdomen: Mild-tender (patient removes providers hands), Non-distended, hypo- reactive bowel sounds Neuro: Yes Alert, NO cooperative, NO oriented to person, place, and time (non- verbal). Unable to assess due to patient condition. Objective Labs 05/06/24 04:43 05/06/24 04:43 Labs: Laboratory Results - last 24 hr 05/05/24 05:29 WBC 5.6 RBC 4.60 Hgb 14.3 Hct 42.8 MCV 93 MCH 31.1 MCHC 33.4 RDW Std Deviation 43.5 Plt Count 99 L D Neut % (Auto) 48 Lymph % (Auto) 43 [place] % (Auto) 8 Eos % (Auto) 2 Baso % (Auto) 1 Neut # (Auto) 2.7 Lymph # (Auto) 2.4 [place] # (Auto) 0.4 Eos # (Auto) 0.1 Baso # (Auto) 0.0 Immature Gran # (Auto) 0.01 H Absolute Nucleated RBC 0.00 Immature Gran % 0 Nucleated RBC % 0 Sodium 140 Potassium 4.3 Chloride 106 Carbon Dioxide 26.7 Anion Gap 7 BUN 7 L Creatinine 0.5 L Estim Creat Clear Calc 112.3 eGFR > 60 BUN/Creatinine Ratio 14 Glucose 93 Calculated Osmolality 277 Calcium 9.6 Phosphorus 3.5 Quality Measures Quality Measures none Assessment & Plan Assessment Current Active Medications: Generic Name Dose Route Start Last Admin Trade Name Ducq PRN Reason Stop Dose Admin Divalproex Sodium 375 mg 05/04/24 09:00 05/05/24 09:20 Divalproex Sod 125 Mg Sprinkle PO 06/03/24 08:59 375 mg BID SAMMY Administration Enoxaparin Sodium 40 mg 05/04/24 09:00 05/05/24 09:25 Enoxaparin Sod Inj 40 Mg/0.4 Ml Syringe SC 05/18/24 08:59 Not Given QDAY SAMMY Ceftriaxone Sodium/Dextrose 50 mls @ 100 mls/hr 05/05/24 06:00 05/05/24 05:12 Rocephin/D5w 1gm Iv Premix IV 05/12/24 05:59 100 mls/hr QDAY@0600 SAMMY Administration Lactulose 10 gm 05/04/24 06:00 05/05/24 14:29 Lactulose Syrup 20 Gm/30 Ml Udc PO 06/03/24 05:59 Not Given TID SAMMY Protocol Polyethylene Glycol 17 gm 05/04/24 09:00 05/05/24 09:20 Polyethylene Glycol 17 Gm Packet PO 06/03/24 08:59 17 gm QDAY SAMMY Administration Sennosides 1 tab 05/04/24 21:00 05/05/24 09:19 Senna Tablet PO 06/03/24 20:59 1 tab BID SAMMY Administration Protocol Ziprasidone 40 mg 05/04/24 09:00 05/05/24 09:20 Ziprasidone 20 Mg Capsule PO 06/03/24 08:59 40 mg BID SAMMY Administration Plan Assessment and Plan: Summary: Patient is a 25 year-old female with a past medical history of developmental delay, autism, nonverbal, history of chronic constipation, history of ARPIT, history of urinary retention who was admitted on 05/04/2024 for constipation s/p fecal disimpaction (in ER) and possible UTI. #Chronic Constipation -Medication (Seroquel D/C recently, PCP trying to see if improve constipation) vs decrease fiber intake vs psychological withhold bowel movement -Patient's x-ray bowel shows copious amounts of stool in rectosigmoid. -CT-abdomen pelvis: Large amounts of stool in the colon especially rectosigmoid, proctitis pattern. -Patient had a bowel movement yesterday with enema Plan: -Senna p.o. twice daily -Polyethylene glycol 17 g p.o. daily -Lactulose 10 g p.o. 3 times daily -Started GoLytely -Monitor for bowel movements -Consulted GI appreciate recommendations -Will consider enema again if no bowel movement. #UTI -Possibly Likely to constipation. -WBC 6.8 UA (05/04/2024): Turbid, Ketons 2+, Urine Blood 2, Esterase Positive, WBC 18, Squamous 23 -Repeat UA negative for UTI #Autism, Development Delays -Continue ziprasidone 40 mg PO BID -Continue divalproex 375 mg PO BID Health Maintenance: Disp: Continue to monitor, consulted GI FEN: Diet Dysphagia 1 DVT: Enoxaparin Code: Full code Case discussed with Attending Dr. Rubin and Dr. Wynne PGY2. Farheen Loza PGY1 Attending Provider Attestation/Addendum Patient was admitted for severe constipation. Patient will continue to receive bowel regimen. Patient tolerating p.o. intake. No nausea or vomiting reported. She has no distention no tenderness. I reviewed the patient's current labs, last imaging results and medication list. I discussed with and supervised the resident physician who took care of this patient. I agree with the assessment and plan as above.
[2024-05-05 16:00] VITALS: BP 116/79; PULSE 119; RESP 17; TEMP 36.4; O2SAT 98
[2024-05-05 20:00] VITALS: BP 126/85; PULSE 108; RESP 17; TEMP 36.9; O2SAT 98
--- NOTE | 2024-05-05 21:20 | PC.NURSE ---
Was notified by patient's care provider that patient is now passing gas but has not yet have a bowel movement. Patient was given scheduled senna and lactulose.
--- NOTE | 2024-05-05 21:48 | ESCONSULT_ITS ---
HPI Data of Consult Requesting Physician: Nikhil Rubin MD Primary Care Provider: Physician No Primary/Family Consult Narrative Reason for consult: Abnormal CT scan of the abdomen and pelvis History of present illness: 24 years old female brought in by the account associate to the emergency room because of fever chills and altered mental status Baseline patient is nonverbal so is difficult to assess I been called in because she had a during course of evaluation CT scan of the abdomen pelvis done which showed stool impaction particularly in the region of the rectum of the rectosigmoid and sigmoid colon I been consulted cc:: cc: Nikhil Rubin MD Review of Systems Review of Systems ROS Unobtainable: unobtainable due to medical condition Meds Home Medications and Allergies Home Medications ?Medication ?Instructions ?Recorded ?Confirmed ?Type divalproex 125 mg capsule,delayed 375 mg PO BID 11/26/22 05/04/24 History release sprinkle docusate sodium 250 mg capsule 250 mg PO DAILY PRN Constipation 11/26/22 05/04/24 History clonidine HCl 0.1 mg tablet 0.1 mg PO 1XD 05/04/24 05/04/24 History linaclotide 145 mcg capsule 145 mcg PO BID 05/04/24 05/04/24 History (Linzess) oxybutynin chloride 5 mg tablet 5 mg PO 1XD 05/04/24 05/04/24 History ziprasidone HCl 40 mg capsule 40 mg PO 2XD 05/04/24 05/04/24 History Allergies Allergy/AdvReac Type Severity Reaction Status Date / Time No Known Allergies Allergy Verified 05/03/24 21:39 Exam Vital Signs Temp Pulse Resp BP Pulse Ox O2 Del Method 98.4 F 108 H 17 126/85 H 98 Room Air 05/05/24 20:00 05/05/24 20:00 05/05/24 20:00 05/05/24 20:00 05/05/24 20:00 05/05/24 20:00 Constitutional Comments: Chronically ill-appearing Routine Respiratory Exam Comments: Normal to auscultation Routine Abdominal Exam Comments: Somewhat distended hypoactive bowel sounds Results Labs 05/05/24 05:29 05/05/24 05:29 Labs: Short CBC 05/05/24 Range/Units 05:29 WBC 5.6 (3.6-11.0) Thou/mm3 Hgb 14.3 (12.0-16.0) g/dL Hct 42.8 (36.0-46.0) % Plt Count 99 L D (140-440) Thou/mm3 BMP 05/05/24 05:29 Sodium 140 Potassium 4.3 Chloride 106 Carbon Dioxide 26.7 BUN 7 L Creatinine 0.5 L Glucose 93 Calcium 9.6 Assessment and Plan Additional Assessment & Plan Additional Plan: # Stool impaction Plan Will conduct manual disimpaction Followed by GoLytely to clean the colon out on the left side Will follow the patient Other medical problems include # Fever # ALOC more than baseline # Developmentally challenged # Seizure disorder Thank you very much for the opportunity to participate in the care of this patient
--- NOTE | 2024-05-05 22:12 | ESCONSULT_ITS ---
Addendum Consultation Addendum Date of report being addended: 05/05/24 Narrative: Patient evaluated at the bedside Fully gowned and with the help of the deputy director of nursing and the RN A lot of stool was disimpacted by me at the bedside And the hard stool was broken down with the finger Almost a pound of stool was removed Start GoLytely Clear liquid diet GoLytely should work very well to disimpact the rest of the stool
--- NOTE | 2024-05-05 22:26 | PC.NURSE ---
Dr. Dasilva arrived in unit to follow up with patient. Patient's caregiver no longer at bedside due to her shift being over. No noc shift caregiver to relieve caregiver. Dr. Dasilva performed digital removal of stool. Patient is also drinking Golytely to help have a bowel movement. Per Dr. Dasilva, patient does not have to drink the whole bottle of Golytely. Patient also has avesure in room.
[2024-05-06] VITALS: BP 121/74; PULSE 81; RESP 16; TEMP 36.4; O2SAT 99
[2024-05-06 04:00] VITALS: BP 130/84; PULSE 98; RESP 16; TEMP 37.1; O2SAT 97
[2024-05-06] MEDS: cefTRIAXone/D5w 1gm IV premix 50 ML IV (05:08)
[2024-05-06] MEDS: LACTULOSE SYRUP 20 GM/30 ML UDC 10 GM PO (05:08)
[2024-05-06 05:33] LABS: Basophils % (Auto) 1 % (0-2.5); Eosinophils % (Auto) 1 % (0-10); Hematocrit 45.6 % (36.0-46.0); Hemoglobin 15.4 g/dL (12.0-16.0); Immature Granulocytes % (Auto) 0 % (0-0); Immature Granulocytes Auto 0.02 Thou/mm3 (0.00-0.00); Lymphocytes # (Auto) 2.9 Thou/mm3 (1.0-4.8); Lymphocytes % (Auto) 38 % (10-50); Mean Corpuscular HGB Conc 33.8 g/dl (31.0-37.0); Mean Corpuscular Hemoglobin 31.2 pg (25.0-35.0); Mean Corpuscular Volume 92 fL (80-100); Monocytes # (Auto) 0.5 Thou/mm3 (0.0-0.8); Monocytes % (Auto) 6 % (0-12); Neutrophils # (Auto) 4.2 Thou/mm3 (1.8-7.7); Neutrophils % (Auto) 55 % (37-80); Nucleated Red Blood Cell % 0 /100 WBC (0); Platelet Count 234 Thou/mm3 (140-440); RDW Standard Deviation 43.8 fL (36.4-46.3); Red Blood Count 4.94 Miln/mm3 (4.00-5.20); White Blood Count 7.7 Thou/mm3 (3.6-11.0)
[2024-05-06 06:31] LABS: Anion Gap 9 (7-16); BUN/Creatinine Ratio 10 Ratio (12-20); Blood Urea Nitrogen 6 mg/dL (9-23); Calcium 9.8 mg/dL (8.3-10.6); Carbon Dioxide 26.7 mMol/L (20.0-31.0); Chloride 103 mMol/L (98-107); Creatinine (Component) 0.6 mg/dL (0.6-1.3); Estimated Creatinine Clearance 93.6 mL/min (>60); Glucose 90 mg/dL (74-106); Osmolality,Calculated 275 (275-295); Potassium 4.3 mMol/L (3.4-5.1); Sodium 139 mMol/L (136-145); eGFR > 60 See Note
[2024-05-06 08:00] VITALS: BP 126/84; PULSE 96; RESP 17; TEMP 37.1; O2SAT 97
[2024-05-06] MEDS: SENNA TABLET 1 TAB PO (08:23)
[2024-05-06] MEDS: ZIPRASIDONE 20 MG CAPSULE 40 MG PO (08:23)
[2024-05-06] MEDS: DIVALPROEX SOD 125 MG SPRINKLE 375 MG PO (08:23)
[2024-05-06] MEDS: ENOXAPARIN SOD INJ 40 MG/0.4 ML SYRINGE SC (08:23)
[2024-05-06] MEDS: POLYETHYLENE GLYCOL 17 GM PACKET PO (08:23)
[2024-05-06 11:47] VITALS: BP 116/75; PULSE 91; RESP 16; TEMP 37.1; O2SAT 97
--- NOTE | 2024-05-06 12:51 | ESDS_ITS ---
<Statement entered by Karina Wynne MD - 05/06/24 17:04> I discussed with and supervised the internet sales associate physician who took care of this patient. I personally saw and examined the patient and discussed the assessment and plan with the entire medicine team, including my attending , I agree with the assessment and plan as documented below Karina Wynne M.D. PGY-2 Disclaimer: Despite multiple revisions, due to the dictation software being used, the document bellow may not be free of grammatical errors including phonetic/typographic errors. However, this does not deter from our commitment to providing health care in the patient's best interest in mind. Planned Discharge Date 05/06/24 DS: Providers Provider Date of admission: 05/04/24 05:21 Primary care physician: Physician Keisha Primary/Family Admitting Provider: Rogelio Iniguez MD Attending Provider on Admission: Nikhil Rubin MD Consults: 05/04/24 15:47 Referral Occupational Therapy Routine Comment: Referral Registered Dietitian Routine Comment: 05/05/24 15:15 Consult to Gastroenterology Routine Comment: Severe Constipation Consulting Provider: Aissatou Dasilva Attending Provider on DC: Nikhil Rubin MD Discharging Provider: Nikhil Rubin MD DS: Diagnosis Problem List Completed Was Problem List Reviewed/Reconciled?: Yes Hospital Course Hospital Course Hospital course: Hospital course: Ms. Terrazas is a 24-year-old female with past medical history of autism, developmental delays, chronic constipation, urinary retention who presented to [facility] for chronic constipation. On presentation patient's x-ray showed copious amount of stool in rectosigmoid and CT abdomen pelvis confirmed the large amount of stools in colon especially rectosigmoid with proctitis. Patient had manual disimpaction of stool in the ED and was patient was started on senna, polyethylene glycol, lactulose and GoLytely on admission, patient did have bowel movements with water enemas, GI was consulted and patient had manual disimpaction at bedside completed by GI specialist. Patient condition did improve with manual disimpaction and bowel regimen. Further plan is to discharge patient back to [facility], with recommendation to continue GoLytely and daily enemas as needed. Patient to follow-up with PCP in 1 week. Patient is stable for discharge. Discharge diagnoses: #Constipation #Massive stool retention status post manual disimpaction #Proctitis #Developmental disorders #Autism spectrum disorder # Ruled out UTI Case discussed with Attending Dr. Rubin and Dr. Wynne PGY2. Farheen Loza PGY1 Time Spent with Patient Time attestation: Total time spent providing and/or coordinating discharge services: Exam Vital Signs Temp Pulse Resp BP Pulse Ox O2 Del Method 98.7 F 91 16 116/75 97 Room Air 05/06/24 11:47 05/06/24 11:47 05/06/24 11:47 05/06/24 11:47 05/06/24 11:47 05/06/24 11:47 Narrative Exam General Appearance: thin female who is lying in bed in no acute distress HEENT: Skull symmetrical and atraumatic. Conjunctivae pin and moist. Pupils equal, round, reactive to light and accommodation (PERRL). External ear without lesion or discharge. Straight, nares patient, mucosa pink, no discharge. No thyroid nodule appreciated. No cervical lymphadenopathy. Cardio: Normal Rate and Rhythm with S1 and S2 heart sounds. No murmurs or extra heart sounds auscultated. No bruits on carotid auscultation. No peripheral edema or cyanosis. Lungs: Symmetric with good expansion. Chest and back non-tender. Breath sounds vesicular without crackles, wheezing or rhonchi Abdomen: Mild-tender (patient removes providers hands), Non-distended, hypo- reactive bowel sounds Neuro: Yes Alert, NO cooperative, NO oriented to person, place, and time (non- verbal). Unable to assess due to patient condition. Discharge Plan Problem List Was Problem List Reviewed/Reconciled?: Yes Plan Patient Disposition: Xfer Skilled Nsg Fac (SNF) Patient condition on transfer: Stable and Benefits outweigh risks Care Plan Goals: Continue home medication as prescribed Return to ED anytime symptoms worsens Prescriptions/Referrals Prescriptions/Med Rec: [place] Enema 19-7 gram/118 mL enema 118 ml GA QDAY PRN (Reason: constipation) Qty: 532 0RF Rx Instructions: If Patient has a Bowel movement ,Enema not indicated Continued clonidine HCl 0.1 mg tablet 0.1 mg PO 1XD ziprasidone HCl 40 mg capsule 40 mg PO 2XD oxybutynin chloride 5 mg tablet 5 mg PO 1XD Linzess 145 mcg capsule 145 mcg PO BID divalproex 125 mg Capsule, Delayed Rel Sprinkle 375 mg PO BID docusate sodium 250 mg capsule 250 mg PO DAILY PRN (Reason: Constipation) lactulose 20 gram/30 mL solution 20 g PO TID PRN (Reason: constipation) Qty: 1200 0RF Referrals: No Primary/Family,Physician [Primary Care Provider] - Patient/Caregiver Discharge Instructions Education Materials: Anatomy of the Digestive System, ED Constipation (Adult), ED Fecal Impaction, Treated Print Language: Yakut Stand Alone Forms: [facility] Award Info., Patient Portal Info Letter Discharge Order Discharge Orders: Discharge (Routine); Ordered 05/06/24 Ordered By: Karina Wynne Quality Discharge Quality Measures VTE prophylaxis MD Attestestation MD Attestation I discussed with and supervised the resident physician who took care of this patient. I agree with the assessment and discharge [facility] dispensary I mean I think she is pretty close to the heart ultrasound like what exactly telling you yeah ultrasound looking she is doing better yesterday she was looking okay and somebody 37 years old lady with stage IV cancer a 20-year-old breast cancer diagnosed plan as above.
--- NOTE | 2024-05-06 13:08 | PC.NURSE ---
gave report to Candace at [facility]
--- NOTE | 2024-05-06 21:45 | ESPR_ITS ---
Documentation for date of: 05/06/24 Subjective Subjective Interval history: Late entry for the note Case discussed with the internal medicine team Patient will drink additional GoLytely at the nursing facility And follow their bowel protocol No need for GI follow-up Exam Vital Signs Temp Pulse Resp BP Pulse Ox O2 Del Method 98.7 F 91 16 116/75 97 Room Air 05/06/24 11:47 05/06/24 11:47 05/06/24 11:47 05/06/24 11:47 05/06/24 11:47 05/06/24 11:47 Objective Labs 05/06/24 04:43 05/06/24 04:43 Labs: Laboratory Results - last 24 hr 05/06/24 04:43 WBC 7.7 RBC 4.94 Hgb 15.4 Hct 45.6 MCV 92 MCH 31.2 MCHC 33.8 RDW Std Deviation 43.8 Plt Count 234 D Neut % (Auto) 55 Lymph % (Auto) 38 [place] % (Auto) 6 Eos % (Auto) 1 Baso % (Auto) 1 Neut # (Auto) 4.2 Lymph # (Auto) 2.9 [place] # (Auto) 0.5 Eos # (Auto) 0.0 Baso # (Auto) 0.0 Immature Gran # (Auto) 0.02 H Absolute Nucleated RBC 0.00 Immature Gran % 0 Nucleated RBC % 0 Sodium 139 Potassium 4.3 Chloride 103 Carbon Dioxide 26.7 Anion Gap 9 BUN 6 L Creatinine 0.6 Estim Creat Clear Calc 93.6 eGFR > 60 BUN/Creatinine Ratio 10 L Glucose 90 Calculated Osmolality 275 Calcium 9.8 Impressions Impression: # Stool impaction Additional GoLytely at the nursing facility Assessment & Plan A&P Narrative # Stool impaction Plan Will conduct manual disimpaction Followed by GoLytely to clean the colon out on the left side Will follow the patient Other medical problems include # Fever # ALOC more than baseline # Developmentally challenged # Seizure disorder Thank you very much for the opportunity to participate in the care of this patient Time Spent With Patient Time: Total time spent is greater than 50% in coordination of care (as documented) at patient's floor/unit and/or counseling patient:
== END 2024-05-06 13:08 | disposition skilled nursing facility (03) ==
LOC: SERX 05-04 05:45 → SERHOLD 05-04 05:56 → S3SX 05-04 14:47
PROVIDERS: Physician Assistant; Admitting Provider Internal Medicine; Emergency Provider Emergency Medicine; Visit Provider Internal Medicine
DX: K56.41 Fecal impaction (principal); F84.0 Autistic disorder; G40.909 Epilepsy, unspecified, not intractable, without status epilepticus; N39.0 Urinary tract infection, site not specified
CPT/HCPCS: 45915; 36415; 74018; 74022; 74177; 80048; 80053; 81001; 84100; 84703; 85025; 87400; 87651; 87811; 96361; 96365; 96366; 96372; 99285; A4649; G0378; J0696; J1650; J7030; Q9967; A9270